=== PATIENT | female | born 1965 | race Caucasian/White ===

== ENCOUNTER 2017-11-30 13:17 | Outpatient (CLI) | payer OTHER ==
--- NOTE | 2017-12-06 16:57 | MMO ---
BILATERAL SCREENING MAMMOGRAM: Date: 11/30/17 HISTORY: Screening. COMPARISON: Mammogram from 10/27/16. TECHNIQUE: Bilateral screening CC and MLO mammograms. This patient's mammogram was interpreted with the assistance of computer-aided detection. FINDINGS: There are scattered fibroglandular densities. No suspicious mass, architectural distortion, or microc alcifications. IMPRESSION: BIRADS 2: Benign Finding(s) Continued annual mammographic screening is recommended. POS: JAMAR
== END 2017-11-30 13:18 | disposition home or self-care (01) ==
LOC: SCSMAMMO 13:17
PROVIDERS: ATTEND Family Medicine
DX: Z12.31 Encounter for screening mammogram for malignant neoplasm of breast (principal)
CPT/HCPCS: 77067

== ENCOUNTER 2018-03-25 05:57 | Day surgery (SDC) | payer OTHER ==
[2018-03-24 16:23] VITALS: BMI 26.5
--- NOTE | 2018-03-25 00:08 | HP ---
SHORT STAY HISTORY AND PHYSICAL DATE OF ADMISSION: 03/25/2018 HISTORY OF PRESENT ILLNESS: This is a 52-year-old female, who comes for a colonoscopy for colon [facility] screening. The patient has no specific GI symptoms. There is no family history of colon cancer. ALLERGIES: MORPHINE. MEDICAL ILLNESSES: 1. Hypertension. 2. Hypothyroidism. 3. Chronic back pain. 4. Anxiety. 5. Insomnia. 6. Mild cognitive impairment. 7. Fibromyalgia. 8. Migraine. 9. Sleep apnea. PHYSICAL EXAMINATION: VITAL SIGNS: Weight is 150 pounds. Pulse is 70, blood pressure 106/80. HEENT: Conjunctivae clear. CARDIOVASCULAR SYSTEM: First and second heart sounds normal. LUNGS: Clear to auscultation. ABDOMEN: Abdomen is soft. Abdomen is nontender. There is no organomegaly or masses. EXTREMITIES: Reveal no edema. ADMITTING DIAGNOSIS: A 52-year-old female, who comes for a colonoscopy for colon cancer screening.
--- NOTE | 2018-03-25 08:40 | OP ---
DATE OF PROCEDURE: 03/25/2018 SURGEON: Diamante Collier M.D. OPERATIVE PROCEDURE: Colonoscopy with polypectomy with biopsy forceps. PREOPERATIVE DIAGNOSIS: A 52-year-old female undergoing colonoscopy for colon cancer fidelia arriaga. POSTOPERATIVE DIAGNOSES: 1. Small sessile polyp sigmoid colon. 2. Hemorrhoids. PROCEDURE NOTE: The patient was placed on her left lateral position and was given sedation by Anesth esia Department. A rectal exam was done before the scope was advanced into the rectum. No lesion fe lt on rectal exam. A [employer] video colonoscope was introduced into the rectum and advanced all the wa y to the cecum. The prep was excellent. The mucosa appears normal throughout the colon with normal vascular pattern. The appendiceal orifice, ileocecal valve, cecum well seen. There is no pathology seen. Withdrawal of scope in cecum, ascending colon, hepatic flexure, no pathology seen. The transv erse colon, splenic flexure, and descending colon, no pathology seen. There was a 6 cm sessile polyp over the right lower sigmoid colon area removed with biopsy forceps. Retroflexion of the scope in t he rectum revealed hemorrhoids. DISCHARGE PLANNING: This is a 52-year-old female who came in for colonoscopy for colon can cer screening. She underwent a colonoscopy with removal of polyp from the sigmoid colon area. DISCHARGE RECOMMENDATIONS: 1. The patient was advised to call me if she develops abdominal pain, hematochezia. 2. In the absence of any of the above symptoms she is to come back to me in 2 weeks.
[2018-03-25] MEDS ORDERED: PHENYLEPHRINE-NS 100 MCG/ML 10 ML SYRINGE ONE (13:23)
[2018-03-25] MEDS ORDERED: PROPOFOL 200 MG/20 ML VIAL ONE (13:23)
[2018-03-25] MEDS ORDERED: Ondansetron PF 4 MG/2 ML Vial ONE (13:23)
== END 2018-03-25 08:55 | disposition home or self-care (01) ==
LOC: SDC 05:57
PROVIDERS: ATTEND Internal Medicine Gastroenterology
PROC: 0DBN8ZX Excision of Sigmoid Colon, Via Natural or Artificial Opening Endoscopic, Diagnostic (ICD-10-PCS; principal; 2018-03-25)
DX: Z12.11 Encounter for screening for malignant neoplasm of colon (principal); D12.5 Benign neoplasm of sigmoid colon; K64.9 Unspecified hemorrhoids; E03.9 Hypothyroidism, unspecified; I10 Essential (primary) hypertension; G89.29 Other chronic pain; M54.9 Dorsalgia, unspecified; F41.9 Anxiety disorder, unspecified; G47.00 Insomnia, unspecified; M79.7 Fibromyalgia; G47.30 Sleep apnea, unspecified; G31.84 Mild cognitive impairment of uncertain or unknown etiology; Z87.891 Personal history of nicotine dependence; Z79.891 Long term (current) use of opiate analgesic; Z79.899 Other long term (current) drug therapy; Z98.1 Arthrodesis status
CPT/HCPCS: 88305

== ENCOUNTER 2024-04-03 10:24 | Outpatient (CLI) | payer MEDICARE | END 2024-04-03 10:25 | disposition home or self-care (01) | LOC: ULT 10:24 | PROVIDERS: ATTEND Physician Assistant Medical | DX: K70.30 Alcoholic cirrhosis of liver without ascites (principal); D64.9 Anemia, unspecified | CPT/HCPCS: 76705 ==